=== PATIENT | male | born 1985 | race Caucasian/White ===

== ENCOUNTER 2019-01-29 19:08 | Emergency (ER) | payer BC ==
[2019-01-29] MEDS ORDERED: FLU Vacc QS2019-20(6MOS+)/PF 60 MCG/0.5 ML SYRINGE IM ONE (19:30)
[2019-01-29] MEDS ORDERED: Diphtheria,Pertussis(Acell),Tetanus Vaccine 0.5 ML Syringe IM ONE (20:17)
[2019-01-29] MEDS ORDERED: Lidocaine 1% 10 ML MDV INJECT ONE (20:17)
--- NOTE | 2019-01-29 20:48 | EDM.PDOC ---
ED HPI GENERAL MEDICAL PROBLEM - General Chief Complaint: Laceration Stated Complaint: LACERATION TO FACE Time Seen by Provider: 01/29/19 20:03 Source of Information: Reports: Patient, RN Notes Reviewed History Limitations: Reports: No Limitations - History of Present Illness INITIAL COMMENTS - FREE TEXT/NARRATIVE: Patient is a 33-year-old male who presents to the ED for evaluation of a facial laceration. Patient states roughly 3 hours ago, he ended up getting hit in the face with a fencepost at home. He states he was lifting some trees, and the fencepost flew back and hit him in the face. This resulted in a laceration to his right proximal eyebrow/forehead. He denies any blurred vision or double vision, he says he has a mild headache with this. Patient states he is not up- to-date on his tetanus immunization. This wound is around 2 cm long, linear and bleeding is controlled. Headache Pain Score (Numeric/FACES): 2 - Related Data Allergies Allergy/AdvReac Type Severity Reaction Status Date / Time No Known Allergies Allergy Verified 01/29/19 19:18 Home Meds: Home Meds . [No Known Home Meds] 01/29/19 [History] Past Medical History - Past Health History Medical/Surgical History: Denies Medical/Surgical History Social & Family History - Family History Family Medical History: Noncontributory - Tobacco Use Smoking Status *Q: Never Smoker Second Hand Smoke Exposure: No - Caffeine Use Caffeine Use: Reports: Coffee, Energy Drinks - Recreational Drug Use Recreational Drug Use: No ED ROS GENERAL - Review of Systems Review Of Systems: ROS reveals no pertinent complaints other than HPI. HEENT: Denies: Vertigo, Vision Change Skin: Reports: Wound ( SEE HPI) Neurological: Reports: Headache (mild frontal headache) ED EXAM, SKIN/RASH Exam: See Below Exam Limited By: No Limitations General Appearance: Alert, WD/WN, No Apparent Distress Eye Exam: Bilateral Eye: EOMI, Normal Inspection, PERRL Head: Normocephalic. No: Facial Tenderness Respiratory/Chest: No Respiratory Distress, Lungs Clear, Normal Breath Sounds, No Accessory Muscle Use, Chest Non-Tender Cardiovascular: Normal Peripheral Pulses, Regular Rate, Rhythm, No Murmur Extremities: Normal Inspection, Normal Capillary Refill Neurological: Alert, Oriented, Normal Cognition, No Motor/Sensory Deficits Psychiatric: Normal Affect, Normal Mood Skin: Warm, Dry, Normal Color, No Rash, Wound/Incision (2 cm linear laceration, gaping to right proximal eyebrow/forehead. This is in an oblique fashion.) Location, Skin: Face ED SKIN PROCEDURES - Laceration/Wound Repair Right Upper Medial Face Appearance: Superficial, Linear, Clean Distal NVT: Neuro & Vascular Intact, No Tendon Injury Anesthetic Type: Local Local Anesthesia - Lidocaine (Xylocaine): 1% Plain Local Anesthetic Volume: 2cc Skin Prep: Chlorhexidine (Hibiciens), Saline Exploration/Debridement/Repair: Wound Explored, In a Bloodless Field, Explored to Base Closed with: Sutures Lac/Wound length In cm: 2 Suture Size: 5-0 # of Sutures: 8 Suture Type: Prolene, Interrupted, Simple Sterile Dressing Applied: Nurse Tetanus Status Addressed: Yes Complications: No Course - Vital Signs Last Recorded V/S: Last Vital Signs Temp 97.6 F 01/29/19 19:14 Pulse 78 01/29/19 19:14 Resp 16 01/29/19 19:14 BP 144/89 H 01/29/19 19:14 Pulse Ox 99 01/29/19 19:14 - Orders/Labs/Meds Orders: Active Orders 24 hr Category Date Time Status Influenza Vaccine Charge [RC] .DISCHARGE Care 01/29/19 19:22 Active Vaccines to be Administered [RC] PER UNIT ROUTINE Care 01/29/19 20:17 Active Meds: Medications Discontinued Medications Generic Name Dose Route Start Last Admin Trade Name Freq PRN Reason Stop Dose Admin Diphtheria/Tetanus/Acell Pertussis 0.5 ml 01/29/19 20:17 01/29/19 20:29 Adacel IM 01/29/19 20:18 0.5 ml .ONCE ONE Administration Influenza Virus Vaccine 60 mcg 01/29/19 19:30 01/29/19 20:17 Fluzone Quad [id number] Syringe IM 01/29/19 19:31 60 mcg .ONCE ONE Administration Lidocaine HCl 10 ml 01/29/19 20:17 01/29/19 20:29 Xylocaine 1% INJECT 01/29/19 20:18 10 ml ONETIME ONE Administration Departure - Departure Time of Disposition: 20:48 Disposition: Home, Self-Care 01 Condition: Fair Clinical Impression: Laceration of eyebrow and forehead Qualifiers: Encounter type: initial encounter Laterality: right Qualified Code(s): S01.81XA - Laceration without foreign body of other part of head, initial encounter - Discharge Information *PRESCRIPTION DRUG MONITORING PROGRAM REVIEWED*: No *COPY OF PRESCRIPTION DRUG MONITORING REPORT IN PATIENT JUDI: No Instructions: Facial Laceration, [id number], Sutured Wound Care, [id number] Referrals: PCP,None [Primary Care Provider] - Forms: ED Department Discharge Additional Instructions: You have been evaluated in the ED for your laceration. Sutures will need to stay in for 5-7 days (02/03 or 02/05) You may return to the ED or clinic for removal. Please keep this area clean and dry, you may cleanse with regular soap and water. No vigorous scrubbing. Watch out for signs of infection like increased redness, swelling, pain at the laceration site, or if you should develop any fevers or chills. Please return to ED if your symptoms change or worsen. - My Orders Last 24 Hours: My Active Orders 01/29/19 19:22 Influenza Vaccine Charge [RC] .DISCHARGE 01/29/19 20:17 Vaccines to be Administered [RC] PER UNIT ROUTINE - Assessment/Plan Last 24 Hours: My Active Orders 01/29/19 19:22 Influenza Vaccine Charge [RC] .DISCHARGE 01/29/19 20:17 Vaccines to be Administered [RC] PER UNIT ROUTINE
== END 2019-01-29 21:30 | disposition home or self-care (01) ==
LOC: JD.ED 19:08
DX: S01.81XA Laceration without foreign body of other part of head, initial encounter (principal); S01.111A Laceration without foreign body of right eyelid and periocular area, initial encounter; Z23 Encounter for immunization; W22.8XXA Striking against or struck by other objects, initial encounter; Y93.89 Activity, other specified; Y92.009 Unspecified place in unspecified non-institutional (private) residence as the place of occurrence of the external cause
CPT/HCPCS: 12011; 90471; 90686; 90700; 99283; J2001; 99282; G0008

== ENCOUNTER 2019-06-13 07:59 | Day surgery (SDC) | payer BC ==
[~2019-06-13 07:59] MED LIST: Lactated Ringers 1,000 ML IV SCH; Lidocaine 1%/Sod Bicarbonate in NS 8.4% 1 ML Syringe IDERM PRN; Sodium Chloride 0.9% 10 ML Syringe FLUSH PRN
[2019-06-13] MEDS ORDERED: Ondansetron 4 MG/2 ML SDV ONE ×2 (08:10→09:22)
[2019-06-13] MEDS ORDERED: Midazolam 1 MG/ML 2 ML SDV ONE ×2 (08:10→09:25)
[2019-06-13] MEDS ORDERED: Ketorolac 30 MG/ML SDV ONE (08:10)
[2019-06-13] MEDS ORDERED: fentaNYL 100 MCG/2 ML SDV ONE (08:10)
[2019-06-13] MEDS ORDERED: ceFAZolin 1 GM Vial ONE (08:10)
[2019-06-13] MEDS ORDERED: Lactated Ringers 1,000 ML ONE (08:10)
[2019-06-13] MEDS ORDERED: Propofol 200 MG/20 ML SDV ONE ×2 (08:10→10:03)
[2019-06-13] MEDS ORDERED: Dexamethasone 4 MG/ML 5 ML MDV ONE (08:17)
--- NOTE | 2019-06-13 08:40 | PCM.PREANE ---
Preanesthetic Assessment - Anesthesia/Transfusion/Family Hx Anesthesia History: No Prior Anesthesia - Review of Systems General: No Symptoms Pulmonary: No Symptoms Cardiovascular: No Symptoms Gastrointestinal: No Symptoms Neurological: No Symptoms Other: Reports: None - Physical Assessment NPO Status Date: 06/12/19 NPO Status Time: 20:00 Vital Signs: Last Vital Signs Temp 97.7 F 06/13/19 08:10 Pulse 63 06/13/19 08:10 Resp 16 06/13/19 08:10 BP 128/77 06/13/19 08:10 Pulse Ox 97 06/13/19 08:10 Height: 1.78 m Weight: 90.718 kg ASA Class: 1 Mental Status: Alert & Oriented x3 Airway Class: Mallampati = 1 Dentition: Reports: Normal Dentition, Broken Tooth/Teeth Thyro-Mental Finger Breadths: 3 Mouth Opening Finger Breadths: 3 ROM/Head Extension: Full Lungs: Clear to Auscultation, Normal Respiratory Effort Cardiovascular: Regular Rate, Regular Rhythm - Lab Values: Laboratory Last Values MRSA (PCR) Negative 06/11/19 09:58 - Allergies Allergies/Adverse Reactions: Allergies Allergy/AdvReac Type Severity Reaction Status Date / Time No Known Allergies Allergy Verified 06/12/19 13:26 - Acknowledgements Anesthesia Type Planned: General Anesthesia, Regional Block (popliteal), MAC Pt an Appropriate Candidate for the Planned Anesthesia: Yes Alternatives and Risks of Anesthesia Discussed w Pt/Guardian: Yes Pt/Guardian Understands and Agrees with Anesthesia Plan: Yes PreAnesthesia Questionnaire - Past Health History Medical/Surgical History: Denies Medical/Surgical History Cardiovascular History: Reports: None Respiratory History: Reports: None Gastrointestinal History: Reports: None Genitourinary History: Reports: None [employer]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 Neurological History: Reports: None Psychiatric History: Reports: None Endocrine/Metabolic History: Reports: None Hematologic History: Reports: None Immunologic History: Reports: None Oncologic (Cancer) History: Reports: None Dermatologic History: Reports: None - Past Surgical History Head Surgeries/Procedures: Reports: None HEENT Surgical History: Reports: Oral Surgery Cardiovascular Surgical History: Reports: None Respiratory Surgical History: Reports: None GI Surgical History: Reports: None Female Surgical History: Reports: None Male Surgical History: Reports: None Endocrine Surgical History: Reports: None Neurological Surgical History: Reports: None Musculoskeletal Surgical History: Reports: Other (See Below) Other Musculoskeletal Surgeries/Procedures:: left achilles tendon rupture Oncologic Surgical History: Reports: None Dermatological Surgical History: Reports: None - SUBSTANCE USE Smoking Status *Q: Never Smoker Recreational Drug Use History: No - HOME MEDS Home Medications: Home Meds Acetaminophen/HYDROcodone [Elizabeth 325-5 MG] 1 - 2 tab PO Q6H PRN #20 tablet 06/12 [Rx] Aspirin 325 mg PO BID #84 tab 06/13/19 [Rx] Ibuprofen [Motrin] 600 mg PO ASDIRECTED PRN 06/13/19 [History] Morphine 15 mg PO ASDIRECTED PRN 06/13/19 [History] - CURRENT (IN HOUSE) MEDS Current Meds: Current Medications Lactated Ringer's (Ringers, Lactated) 1,000 mls @ 125 mls/hr IV ASDIRECTED NEO Stop: 06/13/19 23:00 Lidocaine/Sodium Bicarbonate (Buffered Lidocaine 1% In Ns 8.4%) 0.25 ml IDERM ONETIME PRN PRN Reason: Prior to IV Start Stop: 06/13/19 23:00 Sodium Chloride (Saline Flush) 10 ml FLUSH ASDIRECTED PRN PRN Reason: Keep Vein Open Stop: 06/13/19 23:00 Discontinued Medications Bupivacaine HCl (Sensorcaine-Mpf 0.25%) Confirm Administered Dose 30 ml .ROUTE .STK-MED ONE Stop: 06/13/19 08:22 Cefazolin Sodium (Ancef) Confirm Administered Dose 2 gm .ROUTE .STK-MED ONE Stop: 06/13/19 08:11 Dexamethasone (Dexamethasone) Confirm Administered Dose 20 mg .ROUTE .STK-MED ONE Stop: 06/13/19 08:18 Fentanyl (Sublimaze) Confirm Administered Dose 100 mcg .ROUTE .STK-MED ONE Stop: 06/13/19 08:11 Lactated Ringer's (Ringers, Lactated) Confirm Administered Dose 1,000 mls @ as directed .ROUTE .STK-MED ONE Stop: 06/13/19 08:11 Ketorolac Tromethamine (Toradol) Confirm Administered Dose 30 mg .ROUTE .STK- MED ONE Stop: 06/13/19 08:11 Midazolam HCl (Versed 1 Mg/Ml) Confirm Administered Dose 2 mg .ROUTE .STK-MED ONE Stop: 06/13/19 08:11 Ondansetron HCl (Zofran) Confirm Administered Dose 4 mg .ROUTE .STK-MED ONE Stop: 06/13/19 08:11 Propofol (Diprivan 20 Ml) Confirm Administered Dose 400 mg .ROUTE .STK-MED ONE Stop: 06/13/19 08:11
[2019-06-13] MEDS ORDERED: cloNIDine 1,000 MCG/10 ML SDV ONE (08:42)
[2019-06-13] MEDS ORDERED: Ropivacaine 0.5% 5 MG/ML 30 ML SDV ONE (08:43)
[2019-06-13] MEDS ORDERED: Lidocaine 1% 4 ML ONE (09:27)
[2019-06-13] MEDS: Bupivacaine 0.25% 10 ML SDV ONE ×2 (10:25→10:27)
--- NOTE | 2019-06-13 10:43 | PCM.PRNOTE ---
- Free Text/Narrative Note: Postoperative pain control requested by surgeon. Pre-op Dx: Left Achilles tendon tear Surgery : Left Achilles tendon repair Anesthesia Procedure: Left Popliteal block (selective tibial branch) with U/S guidance Requesting physician: Dr. Bartolo Vann Risks and benefits discussed with the patient preoperatively including infection , bleeding, incomplete or failed block, possible nerve damage, local anesthetic toxicity. Chart reviewed, VS stable. Permit signed. Patient in PACU holding area, stable , alert and awake, positions himself prone with pillow support. Time out performed at 08:54. Oxygen 3L via NC. Left lateral thigh area above the knee was prepped with Chloraprep x 1 and allowed to dry. Midazolam IV 2 mg given. Under aseptic technique, the Left common peroneal and Left tibial nerves were identified under ultrasound prior to needle insertion. Local infiltration with 1% Lidocaine. 4" Stimuplex needle #22 G was inserted under US guidance. Neuromuscular response of plantar flexion was elicited at 0.7 mA. Under direct visualization of needle tip the injection of 0.5% Ropivacaine with 100 mcg of Clonidine (selectively around the tibial branch of the sciatic nerve) , total of 30 mls in divided doses, maintaining negative aspiration was completed without problems. No local anesthetic toxicity was noted. Patient is awake, stable and tolerated the procedure well. Time: 08:54 - 09:03 Please see attached U/S images Bill Be CRNA
--- NOTE | 2019-06-13 11:23 | PCM48HPAN ---
Post Anesthesia Note - EVALUATION WITHIN 48HRS OF ANESTHETIC Vital Signs in Normal Range: Yes Patient Participated in Evaluation: Yes Respiratory Function Stable: Yes Airway Patent: Yes Cardiovascular Function Stable: Yes Hydration Status Stable: Yes Pain Control Satisfactory: Yes Nausea and Vomiting Control Satisfactory: Yes Mental Status Recovered: Yes Vital Signs: Last Vital Signs Temp 97.3 F 06/13/19 10:57 Pulse 80 06/13/19 10:57 Resp 16 06/13/19 10:57 BP 113/66 06/13/19 10:57 Pulse Ox 98 06/13/19 10:57
--- NOTE | 2019-06-17 12:34 | PCM.OPNOTE ---
- General Post-Op/Procedure Note Date of Surgery/Procedure: 06/13/19 Operative Procedure(s): left achilles tendon repair Pre Op Diagnosis: left achilles tendon rupture Post-Op Diagnosis: Same Anesthesia Technique: Local, MAC, Regional Block Primary Surgeon: Bartolo Casillas Anesthesia Provider: Bill Be [employer] Salesperson: Marleni Garcia EBL in mLs: 5 Complications: None Condition: Good
--- NOTE | 2019-06-17 13:13 | OR ---
DATE OF OPERATION: 06/13/2019 SURGEON: Bartolo Casillas MD OPERATION PERFORMED: Left Achilles tendon repair. PREOPERATIVE DIAGNOSIS: Left Achilles tendon rupture. POSTOPERATIVE DIAGNOSIS: Left Achilles tendon rupture. ANESTHESIA: Local MAC with popliteal block. ANESTHESIA PROVIDER: Bill Be. GLASSWARE FINISHER: Marleni Garcia PA-C. ESTIMATED BLOOD LOSS: Less than 5 mL. COMPLICATIONS: None. CONDITION: Stable. DESCRIPTION OF PROCEDURE: The patient was identified in the preoperative holding area. Proper site was marked and identified by the surgeon. The patient was taken back to the operative theater, where after adequate anesthesia, the patient's left lower extremity had a nonsterile tourniquet applied and then he was placed in the prone position, under MAC sedation, and then the left lower extremity was sterilely prepped and draped in the usual sterile fashion. OR time-out was performed. The patient received 2 g of IV Ancef. Left lower extremity was then exsanguinated. Tourniquet was insufflated to 250 mmHg. A standard posterior incision just medially was made down to the level of Achilles tendon. The patient was noted to have a rupture near the distal third of the Achilles tendon. There was noted to be significant nonviable tissue. At this time, after the paratenon was opened, I did remove any nonviable tissue. Starting proximally, a #5 FiberWire was used with modified Krackow stitch proximally making sure that one limb of the suture was remaining on both the medial and lateral sides of the Achilles tendon on the proximal portion. Another #5 FiberWire was then utilized in a similar fashion with modified Krackow stitch on the distal portion. Next, the both limbs for the medial and lateral were then tied with the patient's foot in plantar flexion and was noted to have good apposition of the Achilles tendon both proximally and distally. A #2 FiberWire with [id number] stitches then used for oversewing of the Achilles tendon to make sure there were no significant prominent edges and it had good tubularization of the Achilles tendon. At this time, adequate saline was irrigated through the wound, 0 Vicryl was used for closure of the paratenon, 2-0 Vicryl was used subcutaneously, and 3-0 nylon was used for closure of the skin. The patient was placed in a sterile soft dressing, in a posterior slab splint, and sent to the PACU in stable condition. WES /[id number]
== END 2019-06-13 12:10 | disposition home or self-care (01) ==
LOC: JD.SDS 07:59
PROVIDERS: ATTEND Orthopaedic Surgery
DX: S86.012A Strain of left Achilles tendon, initial encounter (principal); G89.18 Other acute postprocedural pain; X58.XXXA Exposure to other specified factors, initial encounter
CPT/HCPCS: 27650; 87641; J0690; J0735; J1885; J2001; J2250; J2405; J2704; J2795; J3010; J3490; J7120; J1100